=== PATIENT | female | born 1970 | race Caucasian/White ===

== ENCOUNTER 2016-11-16 15:51 | Emergency (ER) | payer BC ==
[~2016-11-16] VITALS: Ht 170.2 cm; Wt 57.7 kg
[~2016-11-16 15:51] MED LIST: ADVIL,NUPRIN,M200 MG PO; ALEVE220 M2 PO; MELATONIN3 MG PO; ZOFRAN ODT4 MG PO
[2016-11-16] MEDS ORDERED: NAPROSYN500 MG PO (17:40)
[2016-11-16 18:17] VITALS: BP 135/87
== END 2016-11-16 18:18 | disposition home or self-care (01) ==
LOC: EME 15:51
PROC: 2W3JX1Z Immobilization of Right Finger using Splint (ICD-10-PCS; principal; 2016-11-16)
DX: S60.221A Contusion of right hand, initial encounter (principal); M79.644 Pain in right finger(s); W10.9XXA Fall (on) (from) unspecified stairs and steps, initial encounter; F17.200 Nicotine dependence, unspecified, uncomplicated
CPT/HCPCS: 73130; 99281; 99283